=== PATIENT | male | born 1970 | race Two or more races ===

== ENCOUNTER 2020-01-01 09:36 | Day surgery (SDC) | payer OTHER ==
[~2020-01-01 09:36] MED LIST: CRESTOR20 MG PO
== END 2020-01-01 15:25 | disposition home or self-care (01) ==
LOC: CIR.AMB 09:36
DX: N20.0 Calculus of kidney (principal)

== ENCOUNTER 2020-01-02 16:25 | Emergency (ER) | payer OTHER ==
[~2020-01-02] VITALS: Ht 182.9 cm; Wt 86.2 kg
== END 2020-01-02 17:50 | disposition home or self-care (01) ==
LOC: ER 16:25
DX: R11.0 Nausea (principal); M54.5 Low back pain

== ENCOUNTER 2020-12-05 09:09 | Outpatient (CLI) | payer OTHER | END 2020-12-05 09:22 | disposition home or self-care (01) | LOC: TOM 09:09 | PROVIDERS: ATTEND Urology | DX: N20.0 Calculus of kidney (principal); Q44.6 Cystic disease of liver; K57.90 Diverticulosis of intestine, part unspecified, without perforation or abscess without bleeding ==

== ENCOUNTER 2021-02-03 05:53 | Day surgery (SDC) | payer OTHER ==
[~2021-02-03 05:53] MED LIST changes: +ZYRTEC10 M3 PO
== END 2021-02-03 14:45 | disposition home or self-care (01) ==
LOC: CIR.AMB 05:53
PROVIDERS: ATTEND Urology
DX: N20.0 Calculus of kidney (principal); Z20.822 Contact with and (suspected) exposure to COVID-19

== ENCOUNTER 2024-09-27 13:46 | Emergency (ER) | payer OTHER ==
[~2024-09-27] VITALS: Ht 182.9 cm; Wt 87.5 kg
[2024-09-27] MEDS ORDERED: LOSARTAN POTASS25 MG PO (14:15)
[2024-09-27] MEDS ORDERED: HYOSCYAMINE SULFATE 0.125 MG TAB.SUBL SL ONE (15:30)
[2024-09-27] MEDS ORDERED: TAMSULOSIN HCL 0.4 MG CAP PO ONE (15:30)
[2024-09-27] MEDS ORDERED: KETOROLAC TROMETHAMINE 30 MG VIAL IV ONE (15:30)
[2024-09-27] MEDS ORDERED: 0.9 % SODIUM CHLORIDE 1,000 ML IV ONE (15:30)
[2024-09-27] MEDS ORDERED: TRAMADOL HCL 50 MG TABLET PO ONE (15:30)
[2024-09-27 15:50] LABS: HEMATOCRIT 46.6 % (39.0-48.0); HEMOGLOBIN 16.1 g/dL (13-16.00); MEAN CELL VOLUME 89.2 fL (80.0-100.00); MEAN CORPUSCULAR HEMOGLOBIN 30.8 pg (27.00-32.0); MEAN CORPUSCULAR HGB CONC 34.5 g/dl (32.0-36.0); PLATELET COUNT 290 K/uL (150-450); RED BLOOD COUNT 5.22 M/uL (4.00-6.00); RED CELL DISTRIBUTION WIDTH 13.1 % (11.5-14.5)
[2024-09-27 16:11] LABS: CALCIUM 9.2 mg/dL (8.5-10.1); CREATININE SERUM 1.19 mg/dL (0.70-1.30); GFR 63.47; POTASSIUM 4.57 mEq/L (3.5-5.1)
[2024-09-27 16:59] LABS: PH,URINE 5.5 (5.0-8.0); URINE APPEARANCE Clear; URINE BILIRRUBIN Negative (NEGATIVE); URINE BLOOD Negative; URINE COLOR Yellow; URINE GLUCOSE Negative (NEGATIVE); URINE KETONE Negative (NEGATIVE); URINE LEUKOCYTE Negative; URINE NITRATE Negative; URINE PROTEIN Negative (NEGATIVE)
[2024-09-27 17:02] LABS: URINE BACTERIA 15.9 uL (0.0-1933); URINE RBC 30.3 uL (0.0-20.8); URINE WBC 5.3 uL (0.0-23.2)
[2024-09-27 17:32] LABS: URINE CRYSTALS FEW /HPF; URINE EPITHELIAL CELLS 0.9 uL (0.0-38.8)
== END 2024-09-27 18:12 | disposition home or self-care (01) ==
LOC: ER 13:48
PROVIDERS: General Practice
DX: N20.1 Calculus of ureter (principal); I10 Essential (primary) hypertension

== ENCOUNTER 2024-12-16 10:42 | Outpatient (CLI) | payer OTHER ==
[~2024-12-16 10:42] MED LIST changes: +LOSARTAN POTASS25 MG PO
== END 2024-12-16 10:43 | disposition home or self-care (01) ==
LOC: SONOGRAMA 10:42
PROVIDERS: ATTEND Urology
DX: N20.0 Calculus of kidney (principal); R31.1 Benign essential microscopic hematuria

== ENCOUNTER 2025-01-16 16:29 | Emergency (ER) | payer OTHER ==
[~2025-01-16] VITALS: Ht 175.3 cm; Wt 72.6 kg
[2025-01-16] MEDS ORDERED: TAMSULOSIN HCL 0.4 MG CAP PO ONE ×2 (17:15→17:20)
[2025-01-16] MEDS ORDERED: CEFTRIAXONE SODIUM 1,000 MG VIAL IV ONE (17:15)
[2025-01-16] MEDS ORDERED: FAMOtidine 10 MG/ML (4ML VIAL) IV ONE (17:15)
[2025-01-16] MEDS ORDERED: KETOROLAC TROMETHAMINE 30 MG VIAL IV ONE (17:15)
[2025-01-16] MEDS ORDERED: KETOROLAC TROMETHAMINE 30 MG VIAL ONE (17:21)
[2025-01-16] MEDS ORDERED: CEFTRIAXONE SODIUM 1,000 MG VIAL ONE (17:21)
[2025-01-16] MEDS ORDERED: FAMOTIDINE/PF 20 MG/2 ML VIAL ONE (17:21)
[2025-01-16 18:06] LABS: HEMATOCRIT 47.4 % (39.0-48.0); HEMOGLOBIN 16.3 g/dL (13-16.00); MEAN CELL VOLUME 87.5 fL (80.0-100.00); MEAN CORPUSCULAR HGB CONC 34.3 g/dl (32.0-36.0); PLATELET COUNT 320 K/uL (150-450); RED BLOOD COUNT 5.42 M/uL (4.00-6.00); RED CELL DISTRIBUTION WIDTH 13.4 % (11.5-14.5)
[2025-01-16 18:30] LABS: PH,URINE 5.5 (5.0-8.0); URINE APPEARANCE Cloudy; URINE BILIRRUBIN Negative (NEGATIVE); URINE BLOOD Large; URINE COLOR Yellow; URINE GLUCOSE Negative (NEGATIVE); URINE KETONE Negative (NEGATIVE); URINE LEUKOCYTE Negative; URINE NITRATE Negative; URINE PROTEIN 30 (NEGATIVE); URINE UROBILINOGEN 0.2 E.U./dl
[2025-01-16 18:36] LABS: URINE BACTERIA 18.3 uL (0.0-1933); URINE CAST 3.97 uL (0.0-1.40); URINE EPITHELIAL CELLS 2.8 uL (0.0-38.8); URINE RBC 1219.6 uL (0.0-20.8); URINE WBC 14.2 uL (0.0-23.2)
[2025-01-16 18:47] LABS: INR 1.03; PARTIAL THROMBOPLASTIN TIME 26.5 SECONDS (22.0-34.0); PROTHROMBIN TIME 11.2 SECONDS (9.0-11.5)
[2025-01-16 18:53] LABS: ALBUMIN 4.2 gm/dL (3.4-5.0); BILIRUBIN TOTAL 0.87 mg/dL (0.3-1.2); CALCIUM 9.6 mg/dL (8.5-10.1); CREATININE SERUM 1.37 mg/dL (0.70-1.30); GFR 53.95; GLOBULINA 3.6 G/DL (2.4-3.5); POTASSIUM 4.73 mEq/L (3.5-5.1); TOTAL PROTEIN 7.8 gm/dL (6.4-8.2)
[2025-01-16] MEDS ORDERED: PEPCID AC20 MG PO (19:59)
[2025-01-16] MEDS ORDERED: KETO10TA2 PO (19:59)
[2025-01-16] MEDS ORDERED: BACTRIM DS TAB1 EACH PO (19:59)
[2025-01-16] MEDS ORDERED: TAMS0.4C PO (19:59)
[2025-01-16 20:15] LABS: URINE CRYSTALS MANY /HPF
== END 2025-01-16 20:15 | disposition home or self-care (01) ==
LOC: ER 16:30
PROVIDERS: General Practice
DX: R10.32 Left lower quadrant pain (principal); N13.2 Hydronephrosis with renal and ureteral calculous obstruction; I10 Essential (primary) hypertension; K57.90 Diverticulosis of intestine, part unspecified, without perforation or abscess without bleeding; D35.02 Benign neoplasm of left adrenal gland

== ENCOUNTER 2025-04-12 19:57 | Emergency (ER) | payer OTHER ==
[~2025-04-12] VITALS: Ht 182.9 cm; Wt 77.1 kg
[~2025-04-12 19:57] MED LIST changes: +BACTRIM DS TAB1 EACH PO; +KETO10TA2 PO; +PEPCID AC20 MG PO; +TAMS0.4C PO
[2025-04-12] MEDS ORDERED: 0.9 % SODIUM CHLORIDE 1,000 ML IV SCH (20:30)
[2025-04-12] MEDS ORDERED: TAMSULOSIN HCL 0.4 MG CAP PO ONE ×2 (20:30→20:31)
[2025-04-12] MEDS ORDERED: MORPHINE SULFATE 4 MG/ML VIAL IV ONE (20:30)
[2025-04-12 20:58] LABS: BASO % 0.9 % (0.1-1.2); EOS # 0.23 (0.04-0.54); HEMATOCRIT 44.8 % (40.1-51.0); HEMOGLOBIN 15.2 g/dL (13.7-17.5); LYMPH # 1.82 (1.18-3.74); LYMPH % 23.7 % (19.3-53.1); MONO # 0.63 (0.24-0.82); MONO % 8.2 % (4.7-12.5); NEUT # 4.92 (1.56-6.13); NEUT % 63.9 % (34.0-71.1); PLATELET COUNT 298 K/uL (163-369); RED BLOOD COUNT 5.25 M/uL (4.63-6.08); RED CELL DISTRIBUTION WIDTH 12.4 % (11.6-14.4)
[2025-04-12 21:15] LABS: INR 0.99; PARTIAL THROMBOPLASTIN TIME 25.6 SECONDS (22.0-34.0); PROTHROMBIN TIME 10.8 SECONDS (9.0-11.5)
[2025-04-12 21:19] LABS: ALBUMIN 3.5 gm/dL (3.4-5.0); BILIRUBIN TOTAL 0.76 mg/dL (0.3-1.2); CALCIUM 9.1 mg/dL (8.5-10.1); CREATININE SERUM 1.34 mg/dL (0.70-1.30); GFR 55.34; GLOBULINA 3.4 G/DL (2.4-3.5); POTASSIUM 4.29 mEq/L (3.5-5.1); TOTAL PROTEIN 6.9 gm/dL (6.4-8.2)
[2025-04-12 22:04] LABS: URINE APPEARANCE Cloudy; URINE BILIRRUBIN Small (NEGATIVE); URINE BLOOD Large; URINE COLOR Orange; URINE GLUCOSE Negative (NEGATIVE); URINE KETONE Negative (NEGATIVE); URINE LEUKOCYTE Moderate; URINE NITRATE Positive
[2025-04-12 22:08] LABS: URINE BACTERIA 75.8 uL (0.0-1933); URINE RBC 395.8 uL (0.0-20.8); URINE WBC 99.7 uL (0.0-23.2)
[2025-04-12 22:19] LABS: URINE CRYSTALS FEW /HPF; URINE EPITHELIAL CELLS 22.3 uL (0.0-38.8); URINE PROTEIN 300 (NEGATIVE)
== END 2025-04-12 22:15 | disposition home or self-care (01) ==
LOC: ER 19:57
PROVIDERS: General Practice
DX: N20.1 Calculus of ureter (principal); R10.9 Unspecified abdominal pain; I10 Essential (primary) hypertension; Z88.6 Allergy status to analgesic agent

== ENCOUNTER → 2025-05-12 | Outpatient (CLI) | payer OTHER | END | disposition home or self-care (01) | LOC: SONOGRAMA 11:44 | PROVIDERS: ATTEND Urology | DX: N20.0 Calculus of kidney (principal); N20.1 Calculus of ureter; R31.1 Benign essential microscopic hematuria ==